=== PATIENT | male | born 1970 | race Caucasian/White ===

== ENCOUNTER → 2016-04-22 | Outpatient (CLI) | payer BC ==
--- NOTE | 2016-04-22 15:53 | KCIC ---
PROCEDURE Testicular ultrasound. HISTORY Testicular pain mainly on the left, no injury. TECHNIQUE Real-time grayscale, color flow, Doppler spectral waveform analysis of the scrotum is performed. COMPARISON None. FINDINGS Right testicle measures 4.6 x 2.8 x 3.2 cm. Left testicle measures 4.7 x 2.4 x 3.2 cm. The echotexture is homogeneous and symmetric and normal. Normal blood flow in the right and left testicle. The epididymides are similar in size. No heterogeneity or hyperemia is seen. There are small bilateral hydroceles. No varicocele is seen. The right and left scrotal wall is thickened. On the left measures up to 7 millimeters on the right 6 millimeters. No hyperemia is seen. No echogenicities in the scrotal wall with posterior shadowing to suggest subcutaneous air and Forunier's gangrene. IMPRESSION 1. Normal blood flow and appearance of the testicles. 2. Small bilateral hydroceles. 3. Bilateral scrotal wall thickening. Electronically signed by: Canelo Manzanares MD (Apr 22, 2016 15:52:24)
== END | disposition home or self-care (01) ==
LOC: KCIC US 12:19
PROVIDERS: ATTEND Family Medicine
DX: N43.2 Other hydrocele (principal); N50.89 Other specified disorders of the male genital organs
CPT/HCPCS: 76870